=== PATIENT | male | born 1995 | race Caucasian/White ===

== ENCOUNTER 2017-08-24 19:52 | Emergency (ER) | payer BC ==
[2017-08-24] MEDS ORDERED: Ondansetron INJ* 2 MG/ML VIAL IV ONE (20:18)
[2017-08-24] MEDS ORDERED: NS 0.9% 1000 ML* 1,000 ML IV ONE (20:18)
[2017-08-24 20:38] LABS: ABS Basophils 0 10^3/ul (0-0.2); ABS Eosinophils 0.1 10^3/ul (0-0.6); ABS Lymphocytes 0.6 10^3/ul (1.0-4.8); ABS Monocytes 0.4 10^3/ul (0-0.8); ABS Neutrophils 9.1 10^3/ul (1.5-7.7); ABS Nucleated RBC 0 10^3/ul; Hematocrit 50 % (42-52); Lymphocyte % 5.6 % (25-47); Mean Corpuscular HGB Conc 34 g/dl (31-36); Mean Corpuscular Hemoglobin 32 pg (27-31); Mean Corpuscular Volume 94 fL (80-94); Mean Platelet Volume 10 um3 (7.4-10.4); Nucleated Red Blood Cells % 0; Platelet Count 179 10^3/ul (150-450); Red Blood Count 5.33 10^6/ul (4.0-5.4); Red Cell Distribution Width 13 % (10.5-15); White Blood Count 10.2 10^3/ul (3.5-10.8)
[2017-08-24 20:51] LABS: EGFR Non-African American 64.5 (>60)
[2017-08-24] MEDS ORDERED: Oseltamivir CAP* 75 MG CAP PO ONE (21:11)
--- NOTE | 2017-08-24 21:18 | ED ---
GI/ HPI - HPI Summary HPI Summary: 21-year-old male presents with nausea vomiting fever today. He denies any cough or sore throat or sinus congestion. He admits to muscle aches. He states he tried to participate in his lacrosse practice today but was unable to go so. He is a [employer]. He has a history of ulcerative colitis and had part of his colon removed so [facility] sent him here for IV fluids. Has taken some ibuprofen for his fever. He denies any abdominal pain. He denies any chest pain or shortness of breath. He denies any pain with urination. He is not currently on any medication. - History of Current Complaint Chief Complaint: EDGeneral Time Seen by Provider: 08/24/17 20:08 Stated Complaint: FLU LIKE SYMPTOMS Pain Intensity: 3 - Allergy/Home Medications Allergies/Adverse Reactions: Allergies Allergy/AdvReac Type Severity Reaction Status Date / Time No Known Allergies Allergy Verified 08/24/17 19:56 PMH/Surg Hx/FS Hx/Imm Hx Endocrine/Hematology History: Denies: Hx Anticoagulant Therapy Cardiovascular History: Denies: Hx Hypertension GI History: Reports: Other GI Disorders - UC - Immunization History Date of Influenza Vaccine: this flu season Immunizations Up to Date: Yes Infectious Disease History: No Infectious Disease History: Denies: Traveled Outside the [place] in Last 30 Days - Family History Known Family History: Negative: Respiratory Disease - Social History Alcohol Use: Occasionally Substance Use Type: Reports: None Smoking Status (MU): Never Smoked Tobacco Review of Systems Positive: Fever Negative: Chest Pain Negative: Shortness Of Breath, Cough Positive: Vomiting, Diarrhea, Nausea. Negative: Abdominal Pain All Other Systems Reviewed And Are Negative: Yes Physical Exam Triage Information Reviewed: Yes Vital Signs On Initial Exam: Initial Vitals Temp Pulse Resp BP Pulse Ox 99.1 F 71 18 154/55 99 08/24/17 19:54 08/24/17 19:54 08/24/17 19:54 08/24/17 19:54 08/24/17 19:54 Vital Signs Reviewed: Yes Appearance: Positive: Well-Appearing Skin: Positive: Warm, Dry Head/Face: Positive: Normal Head/Face Inspection Eyes: Positive: Normal, EOMI, RANJANA, Conjunctiva Clear ENT: Positive: Normal ENT inspection, Pharynx normal, TMs normal Neck: Positive: Supple, Nontender, No Lymphadenopathy Respiratory/Lung Sounds: Positive: Clear to Auscultation, Breath Sounds Present Cardiovascular: Positive: Normal, RRR Abdomen Description: Positive: Nontender, Soft Bowel Sounds: Positive: Present Musculoskeletal: Positive: Normal Neurological: Positive: Normal Psychiatric: Positive: Normal Diagnostics - Vital Signs Vital Signs Temp Pulse Resp BP Pulse Ox 08/24/17 20:15 80 97 08/24/17 20:13 139/69 08/24/17 19:54 99.1 F 71 18 154/55 99 - Laboratory Lab Results: Lab Results 08/24/17 08/24/17 08/24/17 Range/Units 20:26 20:26 20:41 WBC 10.2 (3.5-10.8) 10^3/ul RBC 5.33 (4.0-5.4) 10^6/ul Hgb 17.0 (14.0-18.0) g/dl Hct 50 (42-52) % MCV 94 (80-94) fL MCH 32 H (27-31) pg MCHC 34 (31-36) g/dl RDW 13 (10.5-15) % Plt Count 179 (150-450) 10^3/ul MPV 10 (7.4-10.4) um3 Neut % (Auto) 89.6 H (38-83) % Lymph % (Auto) 5.6 L (25-47) % [place] % (Auto) 3.7 (1-9) % Eos % (Auto) 1.0 (0-6) % Baso % (Auto) 0.1 (0-2) % Absolute Neuts (auto) 9.1 H (1.5-7.7) 10^3/ul Absolute Lymphs (auto) 0.6 L (1.0-4.8) 10^3/ul Absolute Monos (auto) 0.4 (0-0.8) 10^3/ul Absolute Eos (auto) 0.1 (0-0.6) 10^3/ul Absolute Basos (auto) 0 (0-0.2) 10^3/ul Absolute Nucleated RBC 0 10^3/ul Nucleated RBC % 0 Sodium 136 (133-145) mmol/L Potassium 4.3 (3.5-5.0) mmol/L Chloride 104 (101-111) mmol/L Carbon Dioxide 24 (22-32) mmol/L Anion Gap 8 (2-11) mmol/L BUN 23 (6-24) mg/dL Creatinine 1.39 H (0.67-1.17) mg/dL Est GFR ( Amer) 83.0 (>60) Est GFR (Non-Af Amer) 64.5 (>60) BUN/Creatinine Ratio 16.5 (8-20) Glucose 111 H (70-100) mg/dL Calcium 10.1 (8.6-10.3) mg/dL Total Bilirubin 0.80 (0.2-1.0) mg/dL AST 33 (13-39) U/L ALT 24 (7-52) U/L Alkaline Phosphatase 54 (34-104) U/L Total Protein 8.1 (6.4-8.9) g/dL Albumin 5.1 (3.2-5.2) g/dL Globulin 3.0 (2-4) g/dL Albumin/Globulin Ratio 1.7 (1-3) Influenza A (Rapid) Negative (Negative) Influenza B (Rapid) Positive H (Negative) Result Diagrams: 08/24/17 20:26 08/24/17 20:26 Lab Statement: Any lab studies that have been ordered have been reviewed, and results considered in the medical decision making process. Re-Evaluation - Re-Evaluation First Eval Re-Evaluation Time: 21:27 Change: Improved Comment: feeling better after fluids GIGU Course/Dx - Course Course Of Treatment: 21-year-old male presents with nausea vomiting fever today. He denies any cough or sore throat or sinus congestion. He admits to muscle aches. He states he tried to participate in his lacrosse practice today but was unable to go so. He is a [employer]. He has a history of ulcerative colitis and had part of his colon removed so [facility] sent him here for IV fluids. Has taken some ibuprofen for his fever. He denies any abdominal pain. He denies any chest pain or shortness of breath. He denies any pain with urination. He is not currently on any medication. On exam abdomen soft nontender. Pharynx normal. Lungs clear to auscultation. Flu b positive. wbc normal. Electrolytes normal. Gave Zofran and fluids and Tamiflu and feeling better. Will continue treatment with Tamiflu and Zofran for nausea. The patient understands and agrees plan. - Diagnoses Differential Diagnoses - Male: Gastroenteritis (Bacterial), Gastroenteritis ( Viral), Other - influenza Provider Diagnoses: Influenza B, Nausea vomiting and diarrhea Discharge - Discharge Plan Condition: Good Disposition: HOME Prescriptions: Ondansetron ODT TAB* [Zofran 4 MG Odt TAB*] 4 mg PO Q6H PRN #20 tab.odt PRN Reason: Nausea Oseltamivir CAP* [Tamiflu CAP*] 75 mg PO BID #9 cap Patient Education Materials: Influenza (ED) Forms: *School Release Referrals: Pending Sale To [facility] [Primary Care Provider] - Additional Instructions: Take Tamiflu twice for 5 days first dose given in ED Take Tylenol and ibuprofen for muscle aches and fever every 6 hours Use Zofran every 6 hours for nausea as needed Try to drink fluids every hour and eat a small snack every 3 hours Follow up with primary within 5 days Return to ED if develop any new or worsening symptoms
[2017-08-24] MEDS ORDERED: O ndansetron ODT 4MG 2TAB PRPK 4 MG PAK PO ONE (21:25)
[2017-08-24 21:54] VITALS: BP 130/67
== END 2017-08-24 21:58 | disposition home or self-care (01) ==
LOC: ED 19:52
DX: J11.1 Influenza due to unidentified influenza virus with other respiratory manifestations (principal); R11.2 Nausea with vomiting, unspecified; R50.9 Fever, unspecified; R19.7 Diarrhea, unspecified
CPT/HCPCS: 36415; 80053; 85025; 87502; 96374; 99283; A9270-GY; J2405